=== PATIENT | male | born 1965 | race African-American/Black ===

== ENCOUNTER 2018-02-01 23:12 | Inpatient (IN) ==
--- NOTE | 2018-02-01 23:23 | ED ---
HPI General Chief Complaint: Altered Mental Status Stated Complaint: Change in status Time Seen by Provider: 02/01/18 23:17 Source: EMS Mode of arrival: EMS Limitations: physical limitation History of Present Illness HPI Narrative: The patient is a 52-year-old -[place] male who presents to the emergency department via EMS after obtaining a possible stroke. The patient apparently resides at a half-way, [facility] [place], when he went outside to smoke a cigarette earlier tonight per EMS report. The patient walked back into the facility and was talking to staff when he suddenly started to slur his words, drool, became weak. Staff immediately placed the patient in a wheelchair and called EMS. EMS states they arrived and the patient was nonverbal, and appeared to have a left-sided gaze. Upon arrival the patient would open his eyes and follows simple commands. He was able to squeeze with the right hand and left hand and move the right foot and left foot. He was noted to have drift of the left upper extremity and left lower extremity, unknown if this is acute or chronic. The patient also was noted to have dysarthria, however, his speech has significantly improved according to EMS. The patient is noted to be on Eliquis and has a previous history of cognitive deficits following cerebrovascular disease and hyperlipidemia. The physician on record at the half-way is Dr. Mohamud. Onset (ago): minute(s) Time: 22:46 Timing confirmed by: caregiver Location: Reports left face, dysarthria, left arm and left leg History of same: Yes Severity: severe Quality: Reports weak and improving Relieving factors: time Exacerbating factors: none Context: Reports sudden onset On Anticoagulants: Yes Treatments Prior to Arrival: Reports none Related Data Allergies Allergy/AdvReac Type Severity Reaction Status Date / Time No Known Allergies Allergy Uncoded 03/31/14 18:02 Review of Systems ROS: all other systems reviewed are negative [facility] Medical History Medical History CVA (cerebral vascular accident) (Acute) Falls (Acute) Hyperlipidemia (Acute) Hypertension (Acute) Insomnia (Acute) Respiratory TB, bacteriological or histological examination unknown (Acute) Smoker (Acute) Social History Social History Recent Travel in [facility] within the Last 8 Weeks: No Recent Out of Country Travel within the Last 8 Weeks: No Exam Narrative Exam Narrative: GENERAL: Awake, alert, pleasant 52-year-old male who appears his stated age and is in no acute respiratory distress. SKIN: Focused skin assessment warm/dry. HEAD: Atraumatic. Normocephalic. EYES: Pupils equal and round. 2 mm bilateral and reactive. EOMs appear intact. Visual gruber appear symmetric when confronted with hand coming at the face from different gruber. ENT: No nasal bleeding or discharge. Mucous membranes pink and moist. NECK: Trachea midline. No JVD. CARDIOVASCULAR: Regular rate and rhythm. No murmur appreciated. RESPIRATORY: No accessory muscle use. Clear to auscultation. Breath sounds equal bilaterally. GASTROINTESTINAL: Abdomen soft, non-tender, nondistended. Hepatic and splenic margins not palpable. MUSCULOSKELETAL: No obvious deformities. No clubbing. No cyanosis. No edema. NEUROLOGICAL: Eyes open, dysarthria noted. Slight asymmetric smile on the left. Tongue is midline. Drift of the left arm and left leg noted, both fall to the bed prior to 5 seconds. No drift of the right arm or right leg. Patient does withdraw the left lower extremity and left upper extremity to pinching, sensation is intact on the right upper extremity and right lower extremity. Patient is oriented to person and place. PSYCHIATRIC: Appropriate mood and affect; insight and judgment normal. Course Initial Documented Vital Signs Temperature 98.2 F 02/01/18 23:13 Pulse Rate 78 02/01/18 23:13 Respiratory Rate 15 02/01/18 23:13 Blood Pressure 130/80 02/01/18 23:13 Pulse Oximetry 99 02/01/18 23:13 Last Documented Vital Signs Temperature 98.2 F 02/01/18 23:13 Pulse Rate 78 02/01/18 23:13 Respiratory Rate 15 02/01/18 23:13 Blood Pressure 130/80 02/01/18 23:13 Pulse Oximetry 99 02/01/18 23:13 NIH Stroke Scale NIHSS Time Completed NIHSS Time Completed: 23:16 NIH Stroke Scale Level of Consciousness: 1-Drowsy Orientation Questions: 0-Answers both correct Responds to Commands: 0-Both tasks correct Gaze Eye Movement: 0-Horizontal movement WNL Visual Gruber: 0-No visual field defect Facial Movement: 1-Minor facial palsy Motor Functions Arm LEFT: 2-Falls before 10 seconds Motor Functions Arm RIGHT: 0-No drift Motor Functions Leg LEFT: 2-Falls before 5 seconds Motor Functions Leg RIGHT: 0-No drift Limb Ataxia: 0-No ataxia Sensory Loss: 0-No sensory loss Best Language: 0-Normal Articulation: 1-Mild dysarthia Extinction or Inattention Sensory: 0-Absent Total: 7 Medical Decision Making MDM Narrative Medical decision making narrative: IV was established, labs are drawn and sent, and the patient was placed on cardiac telemetry monitoring and continuous pulse oximetry monitoring. The patient initially had aphasia according to EMS, upon arrival had dysarthria with drift to the left upper extremity and left lower extremity, stroke scale was 7. The patient does have a previous history of CVA with mild dysarthria, I am unsure if the patient's acute neurologic findings are acute or chronic. The patient was noted to be on Eliquis. As the patient did have aphasia for a lot bye dysarthria, and stroke scale of 7, stroke alert was called. I discussed the patient with Dr. Merchant, who agrees no indication for IV TPA as the patient is on Eliquis. CTA's were performed to evaluate if there would be any interventional radiology intervention. Medical Screen Exam Complete: Yes Emergency Medical Condition: Yes Differential Diagnosis Differential Diagnosis: Differential diagnosis includes CVA, TIA, intracranial hemorrhage, seizure, hyponatremia, coagulopathy, delirium, UTI. Discharge Plan Discharge Disposition Patient Disposition: 30 Still Patient Physicians Team ED Provider: Jamie Adams Primary Care Provider: UNKNOWN, Status ED Status: With Doctor
--- NOTE | 2018-02-01 23:37 | CT ---
EXAM DATE: 02/01/2018 11:31 PM EST AGE/SEX: 52 years / Male INDICATIONS: Stroke Alert. Aphasic. CLINICAL DATA: This is the patient's initial encounter. Patient reports that signs and symptoms have been present for 1 day and indicates a pain score of 0/10. MEDICAL/SURGICAL HISTORY: Cardiovascular disease. Hypertension. None. RADIATION DOSE: 52.13 CTDI (mGy) COMPARISON: . TECHNIQUE: CT of the head without contrast. Using automated exposure control and adjustment of the mA and/or kV according to patient size, radiation dose was kept as low as reasonably achievable to ob tain optimal diagnostic quality images. DICOM format image data is available electronically for revi ew and comparison. FINDINGS: Cerebrum: There is diffuse atrophy present. There is an old stroke in the posterior right temporal r egion. There is an old right occipital stroke. There is an old lacunar stroke left basal ganglia and thalamus. There is marked chronic ischemic demyelinization changes. The ventricles are mildly promine nt. Posterior Fossa: The cerebellum and brainstem are intact. The 4th ventricle is midline. The cerebe llopontine angle is unremarkable. Extracranial: The visualized portion of the orbits is intact. Skull: The calvaria is intact. No evidence of skull fracture. CONCLUSION: 1. At least 2 right-sided strokes and one left-sided stroke. Diffuse atrophy and marked ischemic dem yelinization. No evidence of acute hemorrhage or edema Report was called by Dr. Slade to Dr. Adams at 2334 hours] Electronically signed by: Robert Slade MD 02/01/2018 11:35 PM EST
--- NOTE | 2018-02-01 23:53 | CT ---
EXAM DATE: 02/01/2018 11:43 PM EST AGE/SEX: 52 years / Male INDICATIONS: Stroke Alert. Aphasic. CLINICAL DATA: This is the patient's initial encounter. Patient reports that signs and symptoms have been present for 1 day and indicates a pain score of 0/10. MEDICAL/SURGICAL HISTORY: Cerebrovascular disease. Hypertension. None. RADIATION DOSE: 7.71 CTDI (mGy) ; Combined studies COMPARISON: No prior exams available for comparison. TECHNIQUE: Volumetric scanning was performed using a multi-row detector CT scanner during bolus infu crista of 60 ml Visipaque 320 (iodixanol) nonionic water-soluble contrast as a cumulative dose for mul tiple exams. The data was post processed with a variety of visualization algorithms including full volume maximum intensity projection, multi-planar sliding thin slab reformation, curved planar reform ation, and surface rendering techniques. Using automated exposure control and adjustment of the mA a nd/or kV according to patient size, radiation dose was kept as low as reasonably achievable to obtain optimal diagnostic quality images. DICOM format image data is available electronically for review a nd comparison. FINDINGS: There is excellent visualization of the major intracranial arteries out to the second-order branch ve ssels. There is no evidence for aneurysm, vessel truncation and no evidence for vascular malformati on. There is some mild narrowing of the right middle cerebral compared to the left. There is overall less middle cerebral flow on the right compared to the left but I don't see an obvious filling defect ane urysm or high-grade focal stenosis The right posterior cerebral artery circulation is supplied by the right posterior communicating latricia ry. CONCLUSION: 1. Some narrowing diffusely of the right glenohumeral artery. No evidence of aneurysm or focal steno sis. No thrombus is identified. Report was called by [ Dr. Slade to Dr. Merchant at 2350 hours] Electronically signed by: Robert Slade MD 02/01/2018 11:52 PM EST
[2018-02-01] MEDS: Sod Chloride 0.9% Inj 1,000 ML IV.CONT SCH (23:58)
--- NOTE | 2018-02-01 23:58 | CT ---
EXAM DATE: 02/01/2018 11:55 PM EST AGE/SEX: 52 years / Male INDICATIONS: Stroke Alert. Aphasic. CLINICAL DATA: This is the patient's initial encounter. Patient reports that signs and symptoms have been present for 1 day and indicates a pain score of 0/10. MEDICAL/SURGICAL HISTORY: Cerebrovascular disease. Hypertension. None. RADIATION DOSE: 7.71 CTDI (mGy) ; Combined studies COMPARISON: No prior exams available for comparison. TECHNIQUE: Volumetric scanning was performed using a multirow detector CT scanner during bolus infus ion of 60 ml Visipaque 320 (iodixanol) nonionic water-soluble contrast as a cumulative dose for mult iple exams. The data was postprocessed with a variety of visualization algorithms including full-vo lume maximum intensity projection, multiplanar sliding thin-slab reformation, curved-planar reformati on, and surface-rendering techniques. Using automated exposure control and adjustment of the mA and/ or kV according to patient size, radiation dose was kept as low as reasonably achievable to obtain op timal diagnostic quality images. DICOM format image data is available electronically for review and comparison. FINDINGS: Aortic Arch: There is a three-vessel origin of the great vessels from the aorta. No evidence of ost ial narrowing Right Carotid: The common carotid artery is intact. The carotid bulb has a normal configuration wit hout ulceration or narrowing. There is eccentric calcified plaque without two-dimensional narrowing T he internal carotid artery lumen is smooth without stenosis. The external carotid artery is intact. Left Carotid: The common carotid artery is intact. The carotid bulb has a normal configuration with out ulceration or narrowing. Eccentric calcified plaque without two-dimensional narrowing The promotions intern al carotid artery lumen is smooth without stenosis. The external carotid artery is intact. Vertebrals: The left vertebral artery is dominant and supplies posterior horn of the flow to the bas ilar circulation Percent stenosis is calculated using the diameter of the stenotic region over the diameter of the nor mal distal internal carotid artery. CONCLUSION: 1. The right vertebral artery does not show any flow. The left vertebral artery is patent and contri bute the majority of the flow to the basilar system. 2. Atherosclerotic disease in both internal carotid bulbs but no two-dimensional narrowing is noted Electronically signed by: Robert Slade MD 02/01/2018 11:57 PM EST
--- NOTE | 2018-02-01 23:59 | CT ---
EXAM DATE: 02/01/2018 11:47 PM EST AGE/SEX: 52 years / Male INDICATIONS: Stroke Alert. Aphasic. CLINICAL DATA: This is the patient's initial encounter. Patient reports that signs and symptoms have been present for 1 day and indicates a pain score of 0/10. MEDICAL/SURGICAL HISTORY: Cardiovascular disease. Hypertension. Non-responsive. RADIATION DOSE: 217.64 CTDI (mGy) COMPARISON: No prior exams available for comparison. TECHNIQUE: CT of the head after intravenous administration of 40 ml Visipaque 320 (iodixanol) nonio missy water-soluble contrast as a single exam dose. Using automated exposure control and adjustment of the mA and/or kV according to patient size, radiation dose was kept as low as reasonably achievable to obtain optimal diagnostic quality images. DICOM format image data is available electronically for review and comparison. FINDINGS: 1. CBF (<30%) Volume (ml): 0 2. Perfusion (Tmax>6.0s) Volume (ml): 395 3. Mismatch Volume (ml) (Tmax>6.0 - CBF): 395 CONCLUSION: Physiological brain perfusion parameters with RAPID analysis as above. The decision for consideration of therapy is multi factorial and multi disciplinary relying on subjec tive and objective clinical data. This data is not construed or intended to be the sole determinant of treatment eligibility. Electronically signed by: Robetr Slade MD 02/01/2018 11:58 PM EST
--- NOTE | 2018-02-02 | XR ---
EXAM DATE: 02/01/2018 11:58 PM EST AGE/SEX: 52 years / Male INDICATIONS: Stroke Alert. CLINICAL DATA: This is the patient's initial encounter. Patient reports that signs and symptoms have been present for 1 day and indicates a pain score of 0/10. MEDICAL/SURGICAL HISTORY: . Cerebrovascular disease. Hypertension. None. COMPARISON: No prior exams available for comparison. FINDINGS: A single AP view of the chest demonstrates the lungs to be symmetrically aerated without evidence of mass, infiltrate or effusion. The cardiomediastinal contours are unremarkable. Osseous structures a re intact. CONCLUSION: Negative examination. Electronically signed by: Robert Slade MD 02/01/2018 11:59 PM EST
[2018-02-02 00:11] LABS: Bacteria,Urine Few /hpf; Bilirubin,Urine Negative (Negative); Clarity,Urine Hazy (Clear); Color,Urine Yellow (Yellw/Straw); Glucose,Urine (UA) Negative (Negative); Hyaline Casts,Urine 27 /lpf (0-3); Leukocyte Esterase,Urine Trace (Negative); Mucus,Urine Few /lpf (Occasional); Nitrite,Urine Negative (Negative); Specific Gravity,Urine 1.012 (1.002-1.035)
[2018-02-02 00:15] LABS: Amphetamine Screen,Urine Neg (Neg); Barbiturate Screen,Urine Neg (Neg); Cannabinoid Screen,Urine Neg (Neg); Cocaine Screen,Urine Neg (Neg)
[2018-02-02 00:21] LABS: Opiate Screen,Urine Neg (Neg)
[2018-02-02 00:35] LABS: Activated Partial Thrombo Time 23.8 sec (23.4-31.7); Prothrombin Time 10.5 sec (9.8-11.6)
[2018-02-02] MEDS ORDERED: Dextrose 50% in Water 50 ML Vial IV.PUSH PRN (01:16)
--- NOTE | 2018-02-02 01:58 | P.HPIM ---
History of Present Illness Primary Care Physician: UNKNOWN History of Present Illness: This is a 52-year-old male with a PMH of HTN, Hyperlipidemia, Tobacco Abuse and h/o CVA who was brought to the ER by EMS after strokelike symptoms. Patient is a resident of [facility] for previous history of CVA, per report, patient had walked outside to smoke a cigarette, when he returned to the facility, staff noted patient to have episode of AMS w/ leftward gaze and weakness in addition to dysarthria. Symptoms have improved since arrival to the ER, however patient with persistent dysarthria and ongoing confusion, pt unable to provide any history at this time, but is able to tell me his name, that he is at [place] and that it's 2018. On arrival, BP 130/80, HR 78, O2 sat 99% on RA, Afebrile. INR 1.0. Creatinine 1.4, no previous labs for comparison. UA trace LE, few bacteria. Urine Drug Screen negative. CXR with no acute findings. CT head with previous right-sided strokes and one left- sided stroke, diffuse atrophy and ischemic demyelinization, no acute hemorrhage or edema. CTA Head narrowing of the right glenohumeral artery, no aneurysm or thrombus. CTA Neck right vertebral artery without any flow, left vertebral artery patent contributing majority of flow to the basilar system. Dr. Merchant consulted by ER physician, pt not TPA candidate as he is on Eliquis. - Diagnosis (1) CVA (cerebral vascular accident) (2) Renal insufficiency (3) Tobacco abuse Inpatient Certification: I certify that the inpatient services were ordered in accordance with Medicare regulations governing the order. This includes certification that hospital inpatient services are reasonable and necessary and in the case of services not specified as inpatient-only under 42 CFR 419.22(n), that they are appropriately provided as inpatient services in accordance to with the 2-midnight benchmark under 43 CFR 412.3(e) Estimated Total Length of Stay (Days): 2 Plans for Post Hospital Care: Not yet determined Review of Systems PAST FAMILY HISTORY: Unknown unobtainable due to mental status PMFSH - History History Provided By: Medical Record - Medical History Medical History: Medical History (Last Updated 02/01/18 @ 23:16 by Junie Grant) CVA (cerebral vascular accident) Falls Hyperlipidemia Hypertension Insomnia Respiratory TB, bacteriological or histological examination unknown Smoker - Tobacco History Tobacco Use In Past 30 Days: Yes Smoking Status: Current every day smoker Tobacco Type: Cigarettes - Alcohol History How Often Do You Have a Drink Containing Alcohol: Unable to Obtain - Substance Use History Substance History: Unable to Obtain - Travel History Recent Travel in the USA Within the Last 8 Weeks: No Recent Travel Out of the Country Within the Last 8 Weeks: No - Immunization History Tetanus Immunization: Unsure Medications and Allergies Active Medications: Active Medications Apixaban (Eliquis) 5 mg PO BID [facility] Aspirin (Aspirin Chew) 162 mg PO DAILY [facility] Atorvastatin Calcium (Lipitor) 20 mg PO DAILY [facility] Dextrose (D50w Vial) 50 ml IV.PUSH UNSCH PRN PRN Reason: PER HYPOGLYCEMIA PROTOCOL Enalaprilat (Vasotec Inj) 1.25 mg IV.PUSH Q4H PRN PRN Reason: For SBP > 220 or DBP > 120 Glucagon (Glucagon Inj) 1 mg OTHER UNSCH PRN PRN Reason: for Hypoglycemia Protocol Sodium Chloride (Ns Inj) 1,000 mls @ 70 mls/hr IV.CONT .[id number] [facility] Last Admin: 02/01/18 23:58 Dose: 70 mls/hr Insulin Aspart (Novolog Insulin Correctional Sugar Inj) 0 unit SQ ACHS [facility]; Protocol Pravastatin Sodium (Pravachol) 40 mg PO HS [facility] Sodium Chloride (Ns Flush) 2 ml IV.FLUSH BID [facility] Sodium Chloride (Ns Flush) 2 ml IV.FLUSH PRN PRN PRN Reason: FLUSH AFTER USING IV ACCESS Allergies Allergy/AdvReac Type Severity Reaction Status Date / Time No Known Allergies Allergy Uncoded 03/31/14 18:02 Home Medications Medication Instructions Recorded Confirmed Type amlodipine [Norvasc] 10 mg PO DAILY 02/01/18 02/01/18 History apixaban [Eliquis] 5 mg PO BID 02/01/18 02/01/18 History atorvastatin 20 mg PO DAILY 02/01/18 02/01/18 History escitalopram oxalate [Lexapro] 10 mg PO DAILY 02/01/18 02/01/18 History lisinopril 20 mg PO DAILY 02/01/18 02/01/18 History metoprolol succinate 50 mg PO DAILY 02/01/18 02/01/18 History thiamine HCl (vitamin B1) 100 mg PO DAILY 02/01/18 02/01/18 History Exam Vital signs: Vital Signs 02/01/18 23:13 02/01/18 23:17 02/01/18 23:18 Temperature 98.2 F Pulse Rate 78 Respiratory Rate 15 Blood Pressure 130/80 Pulse Oximetry 99 100 99 02/01/18 23:22 02/02/18 00:00 Temperature Pulse Rate 48 L 59 L Respiratory Rate 16 16 Blood Pressure 124/80 Pulse Oximetry 100 100 Intake & Output 02/01/18 02/01/18 02/02/18 06:59 18:59 06:59 Weight 99.5 kg Narrative: PE: GENERAL: Middle-aged black male in no acute distress, restless, pulling at cannula, +dysarthria, able to mouth few words. SKIN: Focused skin assessment warm and dry. HEENT: PERRLA, EOMI. No scleral icterus or conjunctival pallor. No lid lag or facial droop. CARDIOVASCULAR: Regular rate and rhythm. No obvious murmurs to auscultation. No chest tenderness to palpation. RESPIRATORY: No obvious rhonchi or wheezing. Clear to auscultation. Breath sounds equal bilaterally. GASTROINTESTINAL: Abdomen soft, non-tender, nondistended. BS normal. MUSCULOSKELETAL: Extremities without clubbing, cyanosis, or edema. No obvious deformities. NEUROLOGICAL: Awake, alert and oriented to person, place and year, knows it's 2017. No focal neurologic deficits. Moving both upper and lower extremities spontaneously, strength 4/5 LUE/LLE, unclear if this is acute or chronic. PSYCHIATRIC: Unable to assess due to CVA Results - Labs Labs: Urine 02/01/18 Range/Units 23:50 Urine Color Yellow (Yellw/Straw) Urine Clarity Hazy H (Clear) Urine pH 5.0 (5.0-8.5) Ur Specific [place] 1.012 (1.002-1.035) Urine Protein Negative (Neg-Trace) mg/dL Urine Glucose (UA) Negative (Negative) mg/dL - Imaging Impressions Chest X-Ray 02/01/18 23:17 CONCLUSION: Negative examination. Head CT 02/01/18 23:17 CONCLUSION: 1. At least 2 right-sided strokes and one left-sided stroke. Diffuse atrophy and marked ischemic demyelinization. No evidence of acute hemorrhage or edema Report was called by Dr. Slade to Dr. Adams at 2334 hours] Head CTA 02/01/18 23:17 CONCLUSION: 1. Some narrowing diffusely of the right glenohumeral artery. No evidence of aneurysm or focal stenosis. No thrombus is identified. Report was called by [ Dr. Slade to Dr. Merchant at 2350 hours] Neck CTA 02/01/18 23:17 CONCLUSION: 1. The right vertebral artery does not show any flow. The left vertebral artery is patent and contribute the majority of the flow to the basilar system. 2. Atherosclerotic disease in both internal carotid bulbs but no two- dimensional narrowing is noted CT CAD 02/01/18 23:18 CONCLUSION: Physiological brain perfusion parameters with RAPID analysis as above. The decision for consideration of therapy is multi factorial and multi disciplinary relying on subjective and objective clinical data. This data is not construed or intended to be the sole determinant of treatment eligibility. Caprini VTE Risk Assessment Caprini VTE Risk Assessment: Moderate/High Risk (score >= 2) Caprini Risk Assessment Model: Point Value = 1 Point Value = 2 Point Value = 3 Point Value = 5 Age 41-60 Minor surgery BMI > 25 kg/m2 Swollen legs Varicose veins or History of unexplained or recurrent spontaneous Oral contraceptives or hormone replacement Sepsis (< 1 month) Serious lung disease, including pneumonia (< 1 month) Abnormal pulmonary function Acute myocardial infarction Congestive heart failure (< 1 month) History of inflammatory bowel disease Medical patient at bed rest Age 61-74 Arthroscopic surgery Major open surgery (> 45 min) Laparoscopic surgery (> 45 min) Malignancy Confined to bed (> 72 hours) Immobilizing plaster cast Central venous access Age >= 75 History of VTE Family history of VTE Factor V Leiden Prothrombin [id number] Lupus anticoagulant Anticardiolipin antibodies Elevated serum homocysteine Heparin-induced thrombocytopenia Other congenital or acquired thrombophilia Stroke (< 1 month) Elective arthroplasty Hip, pelvis, or leg fracture Acute spinal cord injury (< 1 month) Prophylaxis Regimen: Total Risk Factor Score Risk Level Prophylaxis Regimen 0-1 Low Early ambulation 2 Moderate Order ONE of the following: *Sequential Compression Device (SCD) *Heparin 5000 units SQ BID 3-4 Higher Order ONE of the following medications: *Heparin 5000 units SQ TID *Enoxaparin/Lovenox 40 mg SQ daily (WT < 150 kg, CrCl > 30 mL/min) *Enoxaparin/Lovenox 30 mg SQ daily (WT < 150 kg, CrCl > 10-29 mL/min) *Enoxaparin/Lovenox 30 mg SQ BID (WT < 150 kg, CrCl > 30 mL/min) AND/OR *Sequential Compression Device (SCD) 5 or more Highest Order ONE of the following medications: *Heparin 5000 units SQ TID (Preferred with Epidurals) *Enoxaparin/Lovenox 40 mg SQ daily (WT < 150 kg, CrCl > 30 mL/min) *Enoxaparin/Lovenox 30 mg SQ daily (WT < 150 kg, CrCl > 10-29 mL/min) *Enoxaparin/Lovenox 30 mg SQ BID (WT < 150 kg, CrCl > 30 mL/min) AND *Sequential Compression Device (SCD) Assessment and Plan - Assessment (1) CVA (cerebral vascular accident) Code(s): I63.9 - Cerebral infarction, unspecified Status: Acute (2) Renal insufficiency Code(s): N28.9 - Disorder of kidney and ureter, unspecified Status: Acute (3) Tobacco abuse Code(s): Z72.0 - Tobacco use Status: Acute - Plan A/P: 1. CVA: h/o CVA, on Eliquis, now w/ acute dysarthria, unclear if left-sided weakness is acute or acute on chronic, symptoms mildly improved since arrival, however persistent dysarthria and weakness. CT Head w/ 2 right-sided strokes and one left-sided stroke w/ significant demyelination, CTA Head w/ no significant findings, CTA Neck w/ right vertebral artery without flow, left vertebral artery patent, images reviewed. Dr. Merchant consulted, pt not TPA candidate. Will admit for further workup, Check Echo for possible embolic event , although not seen on imagining, NPO, HOB flat, IVF, permissive HTN, PT/OT and Speech for eval/tx. 2. Renal Insufficiency: Creatinine 1.4, no recent labs for comparison, U/a w/ trace LE some bacteriuria, afebrile, no leukocytosis, no antibiotics at this time. 3. Tobacco Abuse: No NicoDerm to avoid vasoconstriction, avoid Ativan for now w/ acute CVA and confusion 4. DVT Prophylaxis: Eliquis 5. Social work for d/c planning as needed 6. Case discussed w/ ER physician at length, labs/records/imaging reviewed by me.
--- NOTE | 2018-02-02 12:19 | P.CONNEU ---
History of Present Illness Service: Neurology Primary Care Provider: UNKNOWN Chief Complaint: Stroke History of Present Illness: 52-year-old male with a history of previous stroke on Eliquis admitted for possible recurrent stroke. Lives in a facility where he is noted to have progressive speech difficulty. Not IV TPA candidate as the patient on Eliquis. . CT brain did not show any hemorrhage but old strokes lead artifact noted on image. CT brain and carotids demonstrated right vertebral artery occlusion and carotid atherosclerotic disease. Patient is a poor historian. Review of Systems All other systems reviewed negative except as stated in HPI PMFSH - History History Provided By: Medical Record - Medical History Medical History: Medical History (Last Reviewed 02/02/18 @ 10:44 by Swetha Acosta) CVA (cerebral vascular accident) Falls Hyperlipidemia Hypertension Insomnia Respiratory TB, bacteriological or histological examination unknown Smoker - Tobacco History Tobacco Use In Past 30 Days: Yes Smoking Status: Current every day smoker Tobacco Type: Cigarettes - Alcohol History How Often Do You Have a Drink Containing Alcohol: Unable to Obtain - Substance Use History Substance History: Unable to Obtain - Travel History Recent Travel in the [place] Within the Last 8 Weeks: No Recent Travel Out of the Country Within the Last 8 Weeks: No - Immunization History Tetanus Immunization: Unsure Medications and Allergies Active Medications: Active Medications Apixaban (Eliquis) 5 mg PO BID [facility] Aspirin (Aspirin Chew) 162 mg PO DAILY [facility] Atorvastatin Calcium (Lipitor) 20 mg PO DAILY [facility] Dextrose (D50w Vial) 50 ml IV.PUSH UNSCH PRN PRN Reason: PER HYPOGLYCEMIA PROTOCOL Enalaprilat (Vasotec Inj) 1.25 mg IV.PUSH Q4H PRN PRN Reason: For SBP > 220 or DBP > 120 Glucagon (Glucagon Inj) 1 mg OTHER UNSCH PRN PRN Reason: for Hypoglycemia Protocol Sodium Chloride (Ns Inj) 1,000 mls @ 70 mls/hr IV.CONT .[id number] [facility] Last Admin: 02/01/18 23:58 Dose: 70 mls/hr Insulin Aspart (Novolog Insulin Correctional Sugar Inj) 0 unit SQ ACHS [facility]; Protocol Pravastatin Sodium (Pravachol) 40 mg PO HS [facility] Sodium Chloride (Ns Flush) 2 ml IV.FLUSH BID [facility] Sodium Chloride (Ns Flush) 2 ml IV.FLUSH PRN PRN PRN Reason: FLUSH AFTER USING IV ACCESS Allergies Allergy/AdvReac Type Severity Reaction Status Date / Time No Known Allergies Allergy Uncoded 03/31/14 18:02 Home Medications Medication Instructions Recorded Confirmed Type amlodipine [Norvasc] 10 mg PO DAILY 02/01/18 02/01/18 History apixaban [Eliquis] 5 mg PO BID 02/01/18 02/01/18 History atorvastatin 20 mg PO DAILY 02/01/18 02/01/18 History escitalopram oxalate [Lexapro] 10 mg PO DAILY 02/01/18 02/01/18 History lisinopril 20 mg PO DAILY 02/01/18 02/01/18 History metoprolol succinate 50 mg PO DAILY 02/01/18 02/01/18 History thiamine HCl (vitamin B1) 100 mg PO DAILY 02/01/18 02/01/18 History Exam Vital signs: Vital Signs 02/01/18 23:13 02/01/18 23:17 02/01/18 23:18 Temperature 98.2 F Pulse Rate 78 Respiratory Rate 15 Blood Pressure 130/80 Pulse Oximetry 99 100 99 02/01/18 23:22 02/02/18 00:00 02/02/18 02:20 Temperature 98.2 F Pulse Rate 48 L 59 L 56 L Respiratory Rate 16 16 20 Blood Pressure 124/80 120/67 Pulse Oximetry 100 100 99 02/02/18 08:00 Temperature 98.3 F Pulse Rate 50 L Respiratory Rate 18 Blood Pressure 120/69 Pulse Oximetry 98 Intake & Output 02/01/18 02/02/18 02/02/18 18:59 06:59 18:59 Weight 96.6 kg Narrative: GENERAL: in NAD, SKIN: Warm and dry. HEAD: Atraumatic. Normocephalic. EYES: Pupils equal and round. No scleral icterus. ENT: No nasal bleeding or discharge. NECK: Trachea midline. No JVD. CARDIOVASCULAR: Regular rate and rhythm. RESPIRATORY: No accessory muscle use. GASTROINTESTINAL: Abdomen soft, non-tender, nondistended. MUSCULOSKELETAL: Extremities without clubbing, cyanosis, or edema. No obvious deformities. NEUROLOGICAL: Awake and alert. Severely dysphonic speech disfluency follow some simple requests, exact movements intact face symmetric bradykinetic bradycardia kinesia, no resting tremors, slight increased tone both upper extremities reduced fine finger movement, mild left hemiparesis 4+ out of 5 compared to the right side which is 5- out of 5 ambulates with some assistance with a walker, PSYCHIATRIC: Calm - Constitutional no acute distress - Routine HEENT Exam Head: Present: normocephalic Eye: Present: EOMI Results - Labs Labs: Laboratory Results - last 24 hr 02/01/18 02/01/18 02/01/18 23:17 23:20 23:20 POC Hgb (Calc) 14.6 POC Hct 43.0 PT 10.5 INR 1.0 APTT 23.8 POC Sodium 139 POC Potassium 4.6 POC Chloride 102 POC BUN 18 POC Creatinine 1.4 H POC Glucose 107 Urine Color Urine Clarity Urine pH Ur Specific [place] Urine Protein Urine Glucose (UA) Urine Ketones Urine Occult Blood Urine Nitrate Urine Bilirubin Urine Urobilinogen Ur Leukocyte Esterase Urine RBC Urine WBC Urine Bacteria Hyaline Casts Urine Mucus Micro UA Comment Ur Microscopic Review Urine Culture Comments Urine Opiates Screen Ur Barbiturates Screen Ur Amphetamines Screen U Benzodiazepines Scrn Urine Cocaine Screen U Cannabinoids Screen Blood Type A Positive Blood Type Recheck Required Antibody Screen Negative 02/01/18 02/01/18 02/02/18 23:50 23:50 08:15 POC Hgb (Calc) POC Hct PT INR APTT POC Sodium POC Potassium POC Chloride POC BUN POC Creatinine POC Glucose 100 Urine Color Yellow Urine Clarity Hazy H Urine pH 5.0 Ur Specific [place] 1.012 Urine Protein Negative Urine Glucose (UA) Negative Urine Ketones Negative Urine Occult Blood Small H Urine Nitrate Negative Urine Bilirubin Negative Urine Urobilinogen Less than 2 Ur Leukocyte Esterase Trace H Urine RBC 1 Urine WBC 5 Urine Bacteria Few H Hyaline Casts 27 Urine Mucus Few H Micro UA Comment Cath-culture ind Ur Microscopic Review Not Reportable Urine Culture Comments Cath-cult indicated Urine Opiates Screen Neg Ur Barbiturates Screen Neg Ur Amphetamines Screen Neg U Benzodiazepines Scrn Neg Urine Cocaine Screen Neg U Cannabinoids Screen Neg Blood Type Blood Type Recheck Antibody Screen - Imaging Impressions Chest X-Ray 02/01/18 23:17 CONCLUSION: Negative examination. Head CT 02/01/18 23:17 CONCLUSION: 1. At least 2 right-sided strokes and one left-sided stroke. Diffuse atrophy and marked ischemic demyelinization. No evidence of acute hemorrhage or edema Report was called by Dr. Slade to Dr. Adams at 2334 hours] Head CTA 02/01/18 23:17 CONCLUSION: 1. Some narrowing diffusely of the right glenohumeral artery. No evidence of aneurysm or focal stenosis. No thrombus is identified. Report was called by [ Dr. Slade to Dr. Merchant at 2350 hours] Neck CTA 02/01/18 23:17 CONCLUSION: 1. The right vertebral artery does not show any flow. The left vertebral artery is patent and contribute the majority of the flow to the basilar system. 2. Atherosclerotic disease in both internal carotid bulbs but no two- dimensional narrowing is noted CT CAD 02/01/18 23:18 CONCLUSION: Physiological brain perfusion parameters with RAPID analysis as above. The decision for consideration of therapy is multi factorial and multi disciplinary relying on subjective and objective clinical data. This data is not construed or intended to be the sole determinant of treatment eligibility. Review/Management - Diagnosis (1) Chronic arterial ischemic stroke, multifocal, anterior circulation Code(s): I69.30 - Unspecified sequelae of cerebral infarction Status: Acute Current Visit: Yes (2) Renal insufficiency Code(s): N28.9 - Disorder of kidney and ureter, unspecified Status: Acute Current Visit: Yes - Review/Management Plan: Possible new acute on chronic stroke CT brain scan is performed to rule out artifact but suggest bihemispheric strokes 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 Was placed on Coumadin. It appears in the interval he has been changed Eliquis Recommendation MRI brain; if recurrent stroke observed may need to be changed back to Coumadin EEG Therapy Follow exam Discussed with RN and PT Behavioral modification and risk factor reduction. Weight loss, blood pressure control, blood sugar control, lipid control. Exercise
[2018-02-02 12:30] LABS: Hemoglobin A1c 6.1 % (4.3-6.0)
[2018-02-02 12:31] LABS: Chol/HDL Ratio 3.19 Ratio; HDL Cholesterol 42.3 mg/dL (40.0-60.0)
[2018-02-02] MEDS: Insulin NovoLOG Aspart Correctional Sugar Inj SQ SCH ×4 (12:45→21:40)
[2018-02-02 12:59] LABS: Baso % (Auto) 0.5 % (0.0-2.0); Eos # (Auto) 0.1 th/mm3 (0.0-0.4); Eos % (Auto) 1.8 % (0.0-4.0); Hemoglobin 14.3 gm/dL (13.0-17.0); Lymph # (Auto) 1.5 th/mm3 (1.0-4.8); Lymph % (Auto) 34.3 % (9.0-44.0); Mean Corpuscular HGB Conc 33.2 % (32.0-36.0); Mean Corpuscular Volume 87.3 fL (80.0-100.0); Mean Platelet Volume 8.3 fL (7.0-11.0); Mono # (Auto) 0.4 th/mm3 (0.0-0.9); Neut # (Auto) 2.3 th/mm3 (1.8-7.7); Neut % (Auto) 53.4 % (16.0-70.0); Platelet Count 187 th/mm3 (150-450); Red Blood Count 4.92 mil/mm3 (4.50-5.90); Red Cell Distribution Width 13.8 % (11.6-17.2); White Blood Count 4.3 th/mm3 (4.0-11.0)
[2018-02-02] MEDS ORDERED: Gadobutrol PF 10 MMOL/10 ML Vial (for RAD) IV.SIG ONE (13:12)
[2018-02-02 13:20] LABS: Alanine Aminotransferase 48 U/L (12-78); Albumin 3.1 g/dL (3.4-5.0); Anion Gap 6 meq/L (5-15); Aspartate Aminotransferase 24 U/L (15-37); Blood Urea Nitrogen 12 mg/dL (7-18); Calcium 8.9 mg/dL (8.5-10.1); Carbon Dioxide 28.2 meq/L (21.0-32.0); Chloride 110 meq/L (98-107); Glomerular Filtration Rate 86 mL/min (>89); Glucose,Random 78 mg/dL (74-106); Potassium 4.1 meq/L (3.5-5.1); Sodium 144 meq/L (136-145)
[2018-02-02 13:23] LABS: Alkaline Phosphatase 71 U/L (45-117); Total Protein 7.3 g/dL (6.4-8.2)
--- NOTE | 2018-02-02 13:42 | MR ---
EXAM DATE: 02/02/2018 1:34 PM EST AGE/SEX: 52 years / Male INDICATIONS: Stroke. Post TPA. Lethargy. Right side weakness. CLINICAL DATA: This is the patient's initial encounter. Patient reports that signs and symptoms have been present for 2 days and indicates a pain score of 0/10. MEDICAL/SURGICAL HISTORY: Cardiovascular disease. Cerebrovascular disease. Hypertension. Non- responsive. COMPARISON: [facility], CT HEAD W/O CONTRAST, 02/01/2018. . TECHNIQUE: Multiplanar, multisequence examination of the brain was performed without and with 9cc ml Gadavist (gadobutrol) contrast as a single exam dose. FINDINGS: Cerebrum: There is an area of encephalomalacia involving the right parietal lobe with areas of focal encephalomalacia involving the right periventricular white matter. There is no evidence of intra-axi al or extra-axial fluid collection. No evidence of mass or midline shift. White Matter: Extensive periventricular white matter increased signal as well as increased signal id entified within the white matter of the right posterior parietal lobe. Posterior Fossa: The cerebellum and brainstem are intact. The 4th ventricle is midline. The cerebel lopontine angle is unremarkable. The cerebellar tonsils are normal in position. Diffusion Imaging: No focal areas of restricted diffusion are seen. No evidence of acute infarction . Extracranial: The orbits and sinuses are unremarkable. There is a fluid attenuating nonenhancing mas s involving the superficial soft tissues of the right frontal region. This likely represents a large epidermal inclusion cyst. Post Contrast: No abnormal areas of parenchymal or dural enhancement. No evidence of blood-brain ba rrier breakdown. CONCLUSION: 1. Old infarct involving the right parietal lobe. No evidence of new infarct or acute abnormality. N o abnormal enhancement. 2. There are multiple at least lesion involving the superficial soft tissue tissues of the scalp ove rlying the right frontal lobe. Electronically signed by: Vera Rsosi MD 02/02/2018 1:40 PM EST
--- NOTE | 2018-02-02 14:23 | ECHRPT ---
Indication: CVA/TIA CONCLUSIONS Normal left ventricular size. Mild concentric left ventricular hypertrophy. The left ventricular systolic function is mildly reduced with an estimated ejection fraction in the range of 45- 50%. Basal-inferior hypokinesis The left atrial size is mildly dilated. [id number] mitral valve regurgitation. The estimated pulmonary arterial pressure is 29 mmHg. There is mild tricuspid valve regurgitation. BP: / HR: Rhythm: MEASUREMENTS (Male / Female) Normal Values Technical Quality: 2D ECHO LV Diastolic Diameter PLAX 5.4 cm 4.2 - 5.9 / 3.9 - 5.3 cm LV Systolic Diameter PLAX 3.9 cm IVS Diastolic Thickness 1.0 cm 0.6 - 1.0 / 0.6 - 0.9 cm LVPW Diastolic Thickness 1.2 cm 0.6 - 1.0 / 0.6 - 0.9 cm LV Relative Wall Thickness 0.4 RV Internal Dim ED PLAX 3.3 cm LVOT Diameter 1.7 cm Aortic Root Diameter 2.7 cm LA Systolic Diameter LX 3.7 cm 3.0 - 4.0 / 2.7 - 3.8 cm LV Ejection Fraction MOD 4C 58.0 % LV Ejection Fraction 4C AL 61.1 % LV Ejection Fraction MOD 2C 40.0 % LV Ejection Fraction 2C AL 45.2 % M-MODE Aortic Root Diameter MM 3.7 cm LA Systolic Diameter MM 4.4 cm LA Ao Ratio MM 1.2 DOPPLER AV Peak Velocity 111.0 cm/s AV Peak Gradient 4.9 mmHg LVOT Peak Velocity 63.2 cm/s LVOT Peak Gradient 1.6 mmHg AV Area Cont Eq pk 1.3 cm Mitral E Point Velocity 67.1 cm/s LV E' Lateral Velocity 3.9 cm/s Mitral E to LV E' Lateral Ratio 17.2 LV E' Septal Velocity 5.4 cm/s Mitral E to LV E' Septal Ratio 12.5 TR Peak Velocity 216.0 cm/s TR Peak Gradient 19.0 mmHg Right Atrial Pressure 10.0 mmHg Pulmonary Artery Systolic Pressu 28.7 mmHg Right Ventricular Systolic Press 28.7 mmHg PV Peak Velocity 42.4 cm/s PV Peak Gradient 0.7 mmHg FINDINGS LEFT VENTRICLE Normal left ventricular size. Mild concentric left ventricular hypertrophy. Basal inferior hypokinesis The left ventricular systolic function is mildly reduced with an estimated ejection fraction in the range of 45- 50%. RIGHT VENTRICLE Normal right ventricular size and systolic function. LEFT ATRIUM The left atrial size is mildly dilated. RIGHT ATRIUM The right atrial size is normal. ATRIAL SEPTUM Normal atrial septal thickness without atrial level shunting by limited color doppler interrogation. AORTA The aortic root and proximal ascending aorta are normal in size on limited imaging. MITRAL VALVE [id number] mitral valve regurgitation. AORTIC VALVE Trileaflet aortic valve. No aortic valve stenosis or regurgitation. TRICUSPID VALVE The estimated pulmonary arterial pressure is 29 mmHg. There is mild tricuspid valve regurgitation. PULMONARY VALVE No pulmonary valve regurgitation or stenosis. VESSELS The inferior vena cava is normal in size. PERICARDIUM No pericardial effusion. Florentin Hernandez MD (Electronically Signed) Final Date:02 February 2018 14:22
--- NOTE | 2018-02-02 15:00 | P.PNIM ---
Subjective Interval history: Patient extremely sleepy and only opens eyes to voice and stimuli. Physical Exam Vital signs: Last Vital Signs Temp 97.9 F 02/02/18 12:00 Pulse 49 L 02/02/18 12:00 Resp 18 02/02/18 12:00 BP 125/71 02/02/18 12:00 Pulse Ox 99 02/02/18 12:00 Intake & Output 01/31/18 02/01/18 02/02/18 02/03/18 06:59 06:59 06:59 06:59 Weight 96.6 kg Narrative: GENERAL: This is a well-nourished, well-developed patient, in no apparent distress. CARDIOVASCULAR: Regular rate and rhythm RESPIRATORY: Clear to auscultation. Breath sounds equal bilaterally. No wheezes , rales, or rhonchi. GASTROINTESTINAL: Abdomen soft, non-tender, nondistended. Normal active bowel sounds MUSCULOSKELETAL: Extremities without clubbing, cyanosis, or edema. NEURO: Extremely sleepy and opens eyes briefly to voice and stimuli unable to do extensive neurological exam secondary to patient sleepiness. Urinary Catheter Management Indwelling Urethral Catheter: Cath placed during this visit: yes Urethral indwelling: No Insertion date: 02/01/18 Insertion time: 23:53 Results Labs CBC & Chem 7: 02/02/18 12:27 02/02/18 12:27 Imaging Imaging: Impressions Chest X-Ray 02/01/18 23:17 CONCLUSION: Negative examination. Head CT 02/01/18 23:17 CONCLUSION: 1. At least 2 right-sided strokes and one left-sided stroke. Diffuse atrophy and marked ischemic demyelinization. No evidence of acute hemorrhage or edema Report was called by Dr. Slade to Dr. Adams at 2334 hours] Head CTA 02/01/18 23:17 CONCLUSION: 1. Some narrowing diffusely of the right glenohumeral artery. No evidence of aneurysm or focal stenosis. No thrombus is identified. Report was called by [ Dr. Slade to Dr. Merchant at 2350 hours] Neck CTA 02/01/18 23:17 CONCLUSION: 1. The right vertebral artery does not show any flow. The left vertebral artery is patent and contribute the majority of the flow to the basilar system. 2. Atherosclerotic disease in both internal carotid bulbs but no two- dimensional narrowing is noted CT CAD 02/01/18 23:18 CONCLUSION: Physiological brain perfusion parameters with RAPID analysis as above. The decision for consideration of therapy is multi factorial and multi disciplinary relying on subjective and objective clinical data. This data is not construed or intended to be the sole determinant of treatment eligibility. Head MRI 02/02/18 00:00 CONCLUSION: 1. Old infarct involving the right parietal lobe. No evidence of new infarct or acute abnormality. No abnormal enhancement. 2. There are multiple at least lesion involving the superficial soft tissue tissues of the scalp overlying the right frontal lobe. Assessment and Plan (1) Chronic arterial ischemic stroke, multifocal, anterior circulation: Code(s): I69.30 - Unspecified sequelae of cerebral infarction Status: Chronic (2) Renal insufficiency: Code(s): N28.9 - Disorder of kidney and ureter, unspecified Status: Acute (3) TIA (transient ischemic attack): Code(s): G45.9 - Transient cerebral ischemic attack, unspecified Status: Acute Plan 52-year-old male with a previous CVA history with sent to the emergency room secondary to have progressive speech difficulty and altered mental status 1. TIA in a patient with previous stroke-stat MRI this morning due to patient' s lethargy was ordered which shows no acute stroke. In the past patient was placed on Coumadin and in the interval was changed to Eliquis. At this time will continue with Eliquis until reevaluated by neurology. Obtain EEG Consult speech therapist, occupational therapist and physical therapist 2D echo obtained showed systolic function mildly reduced to 45-50% with basal inferior hypokinesis and mild concentric left ventricular hypertrophy Continue statin 2. Acute kidney injury -improved overnight with IV fluids. 3. Tobacco abusecessation counseling 4. Hypertension history chronic essential resume home lisinopril and metoprolol 5. DVT prophylaxisEliquis
[2018-02-02] MEDS: Sod Chloride 0.9% Inj 1,000 ML IV.CONT SCH (18:00)
--- NOTE | 2018-02-02 22:35 | MG ---
cc: Yvan Mecrhant MD ELECTROENCEPHALOGRAM RECORD NUMBER: [id number] DESCRIPTION: 7-8 Hz activity, 20-40 microvolts with some fast frequency artifact in the frontal channels. Good anterior to posterior gradient. Mild slowing and slow eye movements suggestive of drowsy state. Occasional 2-3 Hz delta bursts. Reduced driving with photic stimulation into stage I sleep. Single lead EKG showing sinus rhythm. INTERPRETATION: Normal awake/sleep electroencephalogram. Clinical correlation. Yvan Merchant MD MG/sj , 08:44 PM , 08:49 PM
[2018-02-03] MEDS: Sod Chloride 0.9% Inj 1,000 ML IV.CONT SCH ×2 (06:21→08:25)
[2018-02-03] MEDS: Insulin NovoLOG Aspart Correctional Sugar Inj SQ SCH ×4 (08:21→23:29)
--- NOTE | 2018-02-03 10:03 | P.PNNEU ---
Subjective Subjective Comments: No cp, no dyspnea, no myers, no vision loss Active Medications: Active Medications Apixaban (Eliquis) 5 mg PO BID [facility] Last Admin: 02/03/18 08:25 Dose: 5 mg Aspirin (Aspirin Chew) 162 mg PO DAILY [facility] Last Admin: 02/03/18 08:25 Dose: 162 mg Atorvastatin Calcium (Lipitor) 20 mg PO DAILY [facility] Last Admin: 02/03/18 08:25 Dose: 20 mg Dextrose (D50w Vial) 50 ml IV.PUSH UNSCH PRN PRN Reason: PER HYPOGLYCEMIA PROTOCOL Enalaprilat (Vasotec Inj) 1.25 mg IV.PUSH Q4H PRN PRN Reason: For SBP > 220 or DBP > 120 Glucagon (Glucagon Inj) 1 mg OTHER UNSCH PRN PRN Reason: for Hypoglycemia Protocol Sodium Chloride (Ns Inj) 1,000 mls @ 70 mls/hr IV.CONT .[id number] [facility] Last Admin: 02/03/18 08:25 Dose: 70 mls/hr Insulin Aspart (Novolog Insulin Correctional Sugar Inj) 0 unit SQ ACHS [facility]; Protocol Last Admin: 02/03/18 08:21 Dose: Not Given Pravastatin Sodium (Pravachol) 40 mg PO HS [facility] Last Admin: 02/02/18 21:38 Dose: 40 mg Sodium Chloride (Ns Flush) 2 ml IV.FLUSH BID [facility] Last Admin: 02/03/18 08:22 Dose: Not Given Sodium Chloride (Ns Flush) 2 ml IV.FLUSH PRN PRN PRN Reason: FLUSH AFTER USING IV ACCESS Allergies/Adverse Reactions: Allergies Allergy/AdvReac Type Severity Reaction Status Date / Time No Known Allergies Allergy Uncoded 03/31/14 18:02 Review of Systems All other systems reviewed negative except as stated in HPI Physical Exam Vital signs: Vital Signs 02/02/18 12:00 02/02/18 16:00 02/02/18 16:05 Temperature 97.9 F 97.9 F Pulse Rate 49 L 60 52 L Respiratory Rate 18 18 Blood Pressure 125/71 124/71 Pulse Oximetry 99 98 02/02/18 20:00 02/02/18 20:03 02/03/18 00:00 Temperature 97.5 F L 97.3 F L Pulse Rate 61 55 L 52 L Respiratory Rate 20 20 Blood Pressure 118/75 132/75 Pulse Oximetry 96 100 11/19/18 00:06 02/03/18 04:00 02/03/18 05:35 Temperature 97.6 F Pulse Rate 55 L 69 66 Respiratory Rate 20 Blood Pressure 136/83 Pulse Oximetry 100 02/03/18 06:49 02/03/18 08:00 02/03/18 09:49 Temperature 97.8 F Pulse Rate 58 L Respiratory Rate 12 20 12 Blood Pressure 122/75 Pulse Oximetry 97 Intake & Output 02/02/18 02/03/18 02/03/18 18:59 06:59 18:59 Intake Total 1840 / 1840 1000 / 1000 Output Total 100 / 100 Balance 1840 / 1840 -100 / -100 1000 / 1000 Weight 97.4 kg Intake: IV 1000 / 1000 1000 / 1000 NS Inj 1,000 ML @ 70 mls/hr IV. 1000 / 1000 1000 / 1000 CONT .[id number] SACHIN Rx#:[id number] Oral 0 / 0 Other 840 / 840 Output: Urine 100 / 100 Other: Other Intake Source Saline Solution # Voids 5 # Incontinent Voids 3 2 Date of Last Bowel Movement 02/02/18 02/02/18 # Bowel Movements 1 Narrative: GENERAL: in NAD, SKIN: Warm and dry. HEAD: Atraumatic. Normocephalic. EYES: Pupils equal and round. No scleral icterus. ENT: No nasal bleeding or discharge. NECK: Trachea midline. CARDIOVASCULAR: Regular rate and rhythm. RESPIRATORY: No accessory muscle use. GASTROINTESTINAL: Abdomen soft, non-tender, nondistended. MUSCULOSKELETAL: Extremities without clubbing, cyanosis, or edema. NEUROLOGICAL: Sleepy, arousable. States he wants to sleep. severely dysphonic speech disfluency follow some simple requests, exact movements intact face symmetric bradykinetic bradycardia kinesia, no resting tremors, slight increased tone both upper extremities reduced fine finger movement, mild left hemiparesis 4+ out of 5 compared to the right side which is 5- out of 5 PSYCHIATRIC: Calm - Constitutional no acute distress - Routine HEENT Exam Head: Present: normocephalic Eye: Present: EOMI - Urinary Catheter Management Indwelling Urethral Catheter Cath placed during this visit: yes Urethral indwelling: No Reason for continuing: Other continuation reason Insertion date: 02/01/18 Insertion time: 23:53 Objective Laboratory Results - last 24 hr 02/02/18 02/02/18 02/02/18 09:59 09:59 12:27 WBC 4.3 RBC 4.92 Hgb 14.3 Hct 43.0 MCV 87.3 MCH 29.0 MCHC 33.2 RDW 13.8 Plt Count 187 MPV 8.3 Neut % (Auto) 53.4 Lymph % (Auto) 34.3 [place] % (Auto) 10.0 H Eos % (Auto) 1.8 Baso % (Auto) 0.5 Neut # (Auto) 2.3 Lymph # (Auto) 1.5 [place] # (Auto) 0.4 Eos # (Auto) 0.1 Baso # (Auto) 0.0 WBC Differential . Differential Comment Auto diff final Sodium Potassium Chloride Carbon Dioxide Anion Gap BUN Creatinine Estimated GFR POC Glucose Random Glucose Hemoglobin A1c 6.1 H Calcium Total Bilirubin AST ALT Alkaline Phosphatase Ammonia Total Protein Albumin Triglycerides 95 Cholesterol 135 LDL Cholesterol, Calc 74 HDL Cholesterol 42.3 Cholesterol/HDL Ratio 3.19 02/02/18 02/02/18 02/02/18 12:27 16:19 17:55 WBC RBC Hgb Hct MCV MCH MCHC RDW Plt Count MPV Neut % (Auto) Lymph % (Auto) [place] % (Auto) Eos % (Auto) Baso % (Auto) Neut # (Auto) Lymph # (Auto) [place] # (Auto) Eos # (Auto) Baso # (Auto) WBC Differential Differential Comment Sodium 144 Potassium 4.1 Chloride 110 H Carbon Dioxide 28.2 Anion Gap 6 BUN 12 Creatinine 1.10 Estimated GFR 86 L POC Glucose 96 Random Glucose 78 Hemoglobin A1c Calcium 8.9 Total Bilirubin 0.4 AST 24 ALT 48 Alkaline Phosphatase 71 Ammonia 46 H Total Protein 7.3 Albumin 3.1 L Triglycerides Cholesterol LDL Cholesterol, Calc HDL Cholesterol Cholesterol/HDL Ratio 02/02/18 02/03/18 20:20 07:25 WBC RBC Hgb Hct MCV MCH MCHC RDW Plt Count MPV Neut % (Auto) Lymph % (Auto) [place] % (Auto) Eos % (Auto) Baso % (Auto) Neut # (Auto) Lymph # (Auto) [place] # (Auto) Eos # (Auto) Baso # (Auto) WBC Differential Differential Comment Sodium Potassium Chloride Carbon Dioxide Anion Gap BUN Creatinine Estimated GFR POC Glucose 99 91 Random Glucose Hemoglobin A1c Calcium Total Bilirubin AST ALT Alkaline Phosphatase Ammonia Total Protein Albumin Triglycerides Cholesterol LDL Cholesterol, Calc HDL Cholesterol Cholesterol/HDL Ratio Review/Management - Diagnosis (1) Chronic arterial ischemic stroke, multifocal, anterior circulation Code(s): I69.30 - Unspecified sequelae of cerebral infarction Status: Chronic Current Visit: Yes (2) Renal insufficiency Code(s): N28.9 - Disorder of kidney and ureter, unspecified Status: Acute Current Visit: Yes - Review/Management Plan: Possible new acute on chronic stroke CT brain scan is performed to rule out artifact but suggest bihemispheric strokes 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 Was placed on Coumadin. 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 If it persists despite sleeping earlier may need to consider trying Provigil obtaining outpatient polysomnogram Mild hyperammonemia, per medical MRI brain; no new stroke EEG; no significant abnormality Therapy Discharge planning back to his facility Behavioral modification and risk factor reduction. Weight loss, blood pressure control, blood sugar control, lipid control. Exercise
--- NOTE | 2018-02-03 12:41 | P.PNIM ---
Subjective Interval history: Extremely sleepy and hard to awake however does open eyes to physical stimuli and voice. Physical Exam Vital signs: Last Vital Signs Temp 97.8 F 02/03/18 08:00 Pulse 58 L 02/03/18 08:00 Resp 12 02/03/18 11:08 BP 122/75 02/03/18 08:00 Pulse Ox 97 02/03/18 08:00 Intake & Output 02/01/18 02/02/18 02/03/18 02/04/18 06:59 06:59 06:59 06:59 Intake Total 1840 / 1840 1000 / 1000 Output Total 100 / 100 Balance 1740 / 1740 1000 / 1000 Weight 96.6 kg 97.4 kg Narrative: GENERAL: This is a well-nourished, well-developed patient, in no apparent distress. CARDIOVASCULAR: Regular rate and rhythm RESPIRATORY: Clear to auscultation. Breath sounds equal bilaterally. No wheezes , rales, or rhonchi. GASTROINTESTINAL: Abdomen soft, non-tender, nondistended. Normal active bowel sounds MUSCULOSKELETAL: Extremities without clubbing, cyanosis, or edema. NEURO: Extremely sleepy and somnolent and opens eyes to voice and stimuli but goes back to sleep. Difficult to get a neurological good exam Urinary Catheter Management Indwelling Urethral Catheter: Cath placed during this visit: yes Urethral indwelling: No Insertion date: 02/01/18 Insertion time: 23:53 Results Labs CBC & Chem 7: 02/02/18 12:27 02/02/18 12:27 Labs: Microbiology 02/01/18 23:50 Catheterized Urine Urine Culture - Preliminary gram negative rods Imaging Imaging: Impressions Head MRI 02/02/18 00:00 CONCLUSION: 1. Old infarct involving the right parietal lobe. No evidence of new infarct or acute abnormality. No abnormal enhancement. 2. There are multiple at least lesion involving the superficial soft tissue tissues of the scalp overlying the right frontal lobe. Assessment and Plan (1) Chronic arterial ischemic stroke, multifocal, anterior circulation: Code(s): I69.30 - Unspecified sequelae of cerebral infarction Status: Chronic (2) Renal insufficiency: Code(s): N28.9 - Disorder of kidney and ureter, unspecified Status: Acute (3) TIA (transient ischemic attack): Code(s): G45.9 - Transient cerebral ischemic attack, unspecified Status: Acute Plan 52-year-old male with a previous CVA history with sent to the emergency room secondary to have progressive speech difficulty and altered mental status 1. TIA in a patient with previous stroke-stat MRI this morning due to patient' s lethargy was ordered which shows no acute stroke. In the past patient was placed on Coumadin and in the interval was changed to Eliquis. At this time will continue with Eliquis EEG was within normal limits Consult speech therapist, occupational therapist and physical therapist 2D echo obtained showed systolic function mildly reduced to 45-50% with basal inferior hypokinesis and mild concentric left ventricular hypertrophy Continue statin Patient continues to be hypersomnolent, this could be due to his active urinary tract infection which urine cultures are showing gram-negative rods. Will initiate IV ceftriaxone 2. Acute kidney injury -improved overnight with IV fluids. 3. Tobacco abusecessation counseling 4. Hypertension history chronic essential resume Norvasc, continue to hold lisinopril and metformin due to normotensive blood pressure readings. 5. Gram-negative candace urinary tract infectionceftriaxone IV. Follow-up with final urine cultures. 6. DVT prophylaxisEliquis Discharge Planning: Back to alf when neuro status improves.
[2018-02-03] MEDS: amLODIPine 5 MG Tablet PO SCH (12:58)
[2018-02-03] MEDS ORDERED: ceFAZolin 1 GM Premix Inj 1 GM/50 ML FROZ.PIGGY IV.SIG SCH (13:00)
[2018-02-04] MEDS: Insulin NovoLOG Aspart Correctional Sugar Inj SQ SCH ×2 (07:13→11:16)
[2018-02-04] MEDS: amLODIPine 5 MG Tablet PO SCH (08:05)
[2018-02-04] MEDS ORDERED: Escitalopram 10 MG Tablet PO SCH (09:00)
--- NOTE | 2018-02-04 11:40 | P.DS ---
DS: Providers Date of admission: 02/02/18 01:16 Primary care physician: UNKNOWN Consults: 02/02/18 01:17 Consult to Neurology Routine Consulting Provider: Yvan Merchant Reason for Consultation: Ischemic Stroke CONSULT FOR AM Notified:: Service Spoke with:: yasmin Date Notified:: 02/02/18 Time Notified:: 01:44 Ordering Provider: WILL 02/03/18 10:11 HUB Only Consult Order Routine Consulting Provider: [facility],Agency Brief History from admission: This is a 52-year-old male with a PMH of HTN, Hyperlipidemia, Tobacco Abuse and h/o CVA who was brought to the ER by EMS after strokelike symptoms. Patient is a resident of [facility] for previous history of CVA, per report, patient had walked outside to smoke a cigarette, when he returned to the facility, staff noted patient to have episode of AMS w/ leftward gaze and weakness in addition to dysarthria. Symptoms have improved since arrival to the ER, however patient with persistent dysarthria and ongoing confusion, pt unable to provide any history at this time, but is able to tell me his name, that he is at [facility] and that it's 2018. On arrival, BP 130/80, HR 78, O2 sat 99% on RA, Afebrile. INR 1.0. Creatinine 1.4, no previous labs for comparison. UA trace LE, few bacteria. Urine Drug Screen negative. CXR with no acute findings. CT head with previous right-sided strokes and one left- sided stroke, diffuse atrophy and ischemic demyelinization, no acute hemorrhage or edema. CTA Head narrowing of the right glenohumeral artery, no aneurysm or thrombus. CTA Neck right vertebral artery without any flow, left vertebral artery patent contributing majority of flow to the basilar system. Dr. Merchant consulted by ER physician, pt not TPA candidate as he is on Eliquis. DS: Diagnosis Discharge Diagnosis (1) TIA (transient ischemic attack): Status: Acute Diagnosis: Principal (2) Chronic arterial ischemic stroke, multifocal, anterior circulation: Status: Chronic Diagnosis: Secondary (3) Renal insufficiency: Status: Acute Diagnosis: Secondary (4) E-coli UTI: Status: Acute Diagnosis: Secondary DS: Summary 52-year-old male with a previous CVA admitted to the hospital due to progressive speech difficulty and altered mental status. MRI performed during this hospitalization showed no acute stroke and felt the symptoms was related to TIA and his E. coli urinary tract infection. He was placed on initial IV ceftriaxone and switch over to p.o. Keflex. In addition he is to continue with his Eliquis per neurology, Dr. Endy Stokes recommendations. His 2D echo showed systolic function was mildly reduced to 45-50% with basal inferior hypokinesis and mild concentric left ventricular hypertrophy. He has blood pressure was normotensive during the hospitalization and recommendations were to decrease his Norvasc to 5 mg and lisinopril to 10 mg and to decrease his metoprolol. Patient now has gained maximum benefit from hospitalization and is ready for transition to halfway facility. Time Spent with Patient Total time spent providing and/or coordinating discharge services: Less than 30 minutes Quality: Stroke Last date observed well: 02/01/18 Last time observed well: 22:15 Quality: VTE Deep Vein Thrombosis/Pulmonary Embolism Present on Admission: No Exam Narrative Exam Narrative: GENERAL: This is a well-nourished, well-developed patient, in no apparent distress. CARDIOVASCULAR: Regular rate and rhythm RESPIRATORY: Clear to auscultation. Breath sounds equal bilaterally. No wheezes , rales, or rhonchi. GASTROINTESTINAL: Abdomen soft, non-tender, nondistended. Normal active bowel sounds MUSCULOSKELETAL: Extremities without clubbing, cyanosis, or edema. NEURO: Alert and oriented to person place and time, normal speech, good career development specialist strength right upper and lower extremities, left hemiparesis with 4.5 out of 5 upper and lower extremities Results Labs on day of discharge: Labs from last 24 hours 02/04/18 02/03/18 02/03/18 07:07 23:23 21:01 POC Glucose 89 150 H 250 H Urine Color Urine Clarity Urine pH Ur Specific [place] Urine Protein Urine Glucose (UA) Urine Ketones Urine Occult Blood Urine Nitrate Urine Bilirubin Urine Urobilinogen Ur Leukocyte Esterase Urine RBC Urine WBC Urine Bacteria Hyaline Casts Urine Mucus Micro UA Comment Urine Culture Comments 02/03/18 02/01/18 16:01 23:50 POC Glucose 107 Urine Color Yellow Urine Clarity Hazy H Urine pH 5.0 Ur Specific [place] 1.012 Urine Protein Negative Urine Glucose (UA) Negative Urine Ketones Negative Urine Occult Blood Small H Urine Nitrate Negative Urine Bilirubin Negative Urine Urobilinogen Less than 2 Ur Leukocyte Esterase Trace H Urine RBC 1 Urine WBC 5 Urine Bacteria Few H Hyaline Casts 27 Urine Mucus Few H Micro UA Comment Cath-culture ind Urine Culture Comments Cath-cult indicated Impressions ITS Impressions Chest X-Ray 02/01/18 23:17 CONCLUSION: Negative examination. Head CT 02/01/18 23:17 CONCLUSION: 1. At least 2 right-sided strokes and one left-sided stroke. Diffuse atrophy and marked ischemic demyelinization. No evidence of acute hemorrhage or edema Report was called by Dr. Slade to Dr. Adams at 2334 hours] Head CTA 02/01/18 23:17 CONCLUSION: 1. Some narrowing diffusely of the right glenohumeral artery. No evidence of aneurysm or focal stenosis. No thrombus is identified. Report was called by [ Dr. Slade to Dr. Merchant at 2350 hours] Neck CTA 02/01/18 23:17 CONCLUSION: 1. The right vertebral artery does not show any flow. The left vertebral artery is patent and contribute the majority of the flow to the basilar system. 2. Atherosclerotic disease in both internal carotid bulbs but no two- dimensional narrowing is noted CT CAD 02/01/18 23:18 CONCLUSION: Physiological brain perfusion parameters with RAPID analysis as above. The decision for consideration of therapy is multi factorial and multi disciplinary relying on subjective and objective clinical data. This data is not construed or intended to be the sole determinant of treatment eligibility. Head MRI 02/02/18 00:00 CONCLUSION: 1. Old infarct involving the right parietal lobe. No evidence of new infarct or acute abnormality. No abnormal enhancement. 2. There are multiple at least lesion involving the superficial soft tissue tissues of the scalp overlying the right frontal lobe. Discharge Plan Discharge Disposition Patient Disposition: 03 Discharge to SNF Discharge Condition Condition: Good Discharge Order Discharge Orders: Discharge Order (Routine); Ordered 02/04/18 Ordered By: Lyubov Fajardo Discharge Details Anticipated Discharge Date: 02/04/18 Physicians Team Primary Care Provider: UNKNOWN, Attending Provider: Lyubov Fajardo Other Providers: Yvan Merchant ; [facility] Rxs /Orders / Referrals /Forms Prescriptions: New cephalexin 500 mg Capsule 500 mg PO Q8HR Qty: 21 RF: 0 amlodipine [Norvasc] 5 mg tablet 5 mg PO DAILY Qty: 30 RF: 0 lisinopril 10 mg tablet 10 mg PO DAILY Qty: 30 RF: 0 metoprolol succinate 25 mg cap,sprinkle,ER 24hr dose pack 25 mg PO DAILY Qty: 30 RF: 0 Continue atorvastatin 20 mg Tablet 20 mg PO DAILY RF: 0 thiamine HCl (vitamin B1) 100 mg Tablet 100 mg PO DAILY RF: 0 escitalopram oxalate [Lexapro] 10 mg Tablet 10 mg PO DAILY RF: 0 apixaban [Eliquis] 5 mg Tablet 5 mg PO BID RF: 0 Discontinued metoprolol succinate 50 mg Tablet Extended Release 24 Hr 50 mg PO DAILY RF: 0 lisinopril 20 mg Tablet 20 mg PO DAILY RF: 0 amlodipine [Norvasc] 10 mg Tablet 10 mg PO DAILY RF: 0 Referrals: UNKNOWN, [Primary Care Provider] - See Instructions ( Follow-up with [facility] within 1 week.) Discharge Instructions Patient Printed Instructions: Cephalexin (By mouth), Lisinopril (By mouth), Amlodipine (By mouth), Transient Ischemic Attack (DC), Altered Mental Status ( GEN) Additional Instructions: Discharge Care Plan Goals for Stroke You have been diagnosed with or have a high risk for a stroke, or a TIA ( transient ischemic attack). During a stroke, blood stops flowing to part of your brain. This can damage areas in the brain that control other parts of the body. Symptoms after a stroke depend on which part of the brain has been affected. Directions to Meet your Goals: 1. Diet: Based on your situation, your doctor will direct you to make changes in your diet. Some of the changes may include: * Reducing the amount of fat and cholesterol you eat * Don't add salt to your food. * Eat more fresh vegetables and fruits * Eat more lean proteins, such as fish, poultry, and beans and peas (legumes). Cut down on red meat & processed meats * Use low-fat dairy products * Limit vegetable oils and nut oils. Avoid any food that has hydrogenated listed in its ingredients. * Limit sweets and processed foods such as chips, cookies, and baked goods 2. Prevent Falls/Injury: You may be at risk of falling. Activity: * Keep your surrounding clutter free to help you walk more easily. * Your doctor and therapist may decide if you need an assistive device to walk safely. Shower/Bathing: * Test the water temperature with a hand or foot that was not affected by the stroke. * Use grab bars, a shower seat, a hand-held showerhead, and a long-handled brush. Getting Dressed: * Dress while sitting, starting with the affected side or limb. * Wear shirts that pull easily over your head. Wear pants or skirts with elastic waistbands. * Use zippers with loops attached to the pull tabs. 3. Lifestyle Modifications: * Take your medicines exactly as prescribed. Dont skip doses. * Begin an exercise program as directed by your doctor. You can benefit from simple activities such as walking or gardening. * Limit how much alcohol you drink. Men should have no more than 2 alcoholic drinks a day. Women should limit themselves to 1 alcoholic drink per day. * Know your cholesterol level. Follow your doctor's recommendations about how to keep cholesterol under control. * If you are a smoker, quit now. Joining a stop-smoking program will improve your chances of success. Ask your doctor for medicines or other methods to help you quit. * Learn stress management techniques to help you deal with stress in your home and work life. 4. Stroke Risk Factors: Once youve had a stroke, youre at greater risk for another one. Listed below are some other factors that can increase your risk for a stroke: * High blood pressure and High Cholesterol * Cigarette or cigar smoking * Diabetes * Carotid or other artery disease * Atrial fibrillation, atrial flutter, or other heart disease * Not being physically active * Obesity * Certain blood disorders such as sickle cell anemia * Drinking too much alcohol * Abusing street drugs * Race * Gender * Family history of stroke * Diet high in salty, fried, or greasy foods 5. Follow-up: * Keep your medical appointments. Close follow-up is important to stroke rehabilitation and recovery. * Some medicines require blood tests to check for progress or problems. Keep follow-up appointments for any blood tests ordered by your providers. Call 911 right away if you have: Weakness, tingling, or loss of feeling on one side of your face or body Sudden double vision or trouble seeing in one or both eyes Sudden trouble talking or slurred speech Trouble understanding others Sudden, severe headache Dizziness, loss of balance, or a sense of falling Blackouts or seizures F.A.S.T. is an easy way to remember the signs of stroke. When you see these signs, you know that you need to call 911 fast. F.A.S.T. stands for: * F is for face drooping. One side of the face is drooping or numb. When the person smiles, the smile is uneven. * A is for arm weakness. One arm is weak or numb. When the person lifts both arms at the same time, one arm may drift downward. * S is for speech difficulty. You may notice slurred speech or trouble speaking. The person can't repeat a simple sentence correctly when asked. * T is for time to call 911. If someone shows any of these symptoms, even if they go away, call 911 right away. Make note of the time the symptoms first appeared. Post Discharge Care Plan Care Plan Goals: Your Health Problems: TIA and UTI Goals to Promote Your Health: * To prevent worsening of your condition * To maintain your health at the optimal level Directions to Meet Your Goals: * Take your medications as prescribed * Follow your dietary instruction * Follow activity as directed * Keep your appointments as scheduled * Take your immunizations and boosters as scheduled * If your symptoms worsen call your PCP * If no PCP go to Urgent Care or Emergency Room Smoking is dangerous to your health. Avoid second hand smoke. You may reach the 24-hour crisis hotline for domestic abuse at . Status ED Status: Left Department
== END 2018-02-04 15:48 ==
LOC: NEPE 23:12 → NEDA 02-02 01:16 → N05 02-02 02:39
PROVIDERS: ADMIT Family Medicine; ATTEND Family Medicine
DX: Z79.899 Other long term (current) drug therapy; I10 Essential (primary) hypertension; I65.01 Occlusion and stenosis of right vertebral artery; G81.94 Hemiplegia, unspecified affecting left nondominant side; N17.9 Acute kidney failure, unspecified; R47.1 Dysarthria and anarthria; G47.00 Insomnia, unspecified; Z79.01 Long term (current) use of anticoagulants; E78.5 Hyperlipidemia, unspecified; Z86.73 Personal history of transient ischemic attack (TIA), and cerebral infarction without residual deficits; I65.23 Occlusion and stenosis of bilateral carotid arteries; F17.210 Nicotine dependence, cigarettes, uncomplicated; N39.0 Urinary tract infection, site not specified; I25.10 Atherosclerotic heart disease of native coronary artery without angina pectoris; R41.89 Other symptoms and signs involving cognitive functions and awareness; G45.9 Transient cerebral ischemic attack, unspecified; Z86.11 Personal history of tuberculosis